=== PATIENT | female | born 1980 | race Caucasian/White ===

== ENCOUNTER 2017-02-01 22:45 | Emergency (ER) | payer OTHER ==
--- NOTE | 2017-02-01 22:49 | PDOC ---
History of Present Illness - General Chief Complaint: Cold Symptoms Stated Complaint: COLD LIKE SYMPTOMS Time Seen by Provider: 02/01/17 22:49 History Source: Patient Exam Limitations: No Limitations - History of Present Illness Initial Comments: 02/01/17 23:00 This is a 36-year-old female comes in complaining of upper respiratory tract symptoms. Patient is complaining of some shortness breath secondary to persistent coughing. Patient said coughing is nonproductive. There is no fever. There is some nasal congestion otherwise patient denies any other complaints. Patient denies any chest pain or shortness of breath. Patient said she had similar symptoms at a point in the past that she let the get to that and ended up having to come to the emergency room and get some nebulizer treatments. Patient does deny history of asthma. But said her seasonal ALLERGIES sometimes require a nebulizer treatment PAST MEDICAL HISTORY: no significant history PAST SURGICAL HISTORY: no significant history FAMILY HISTORY: no pertinant history SOCIAL HISTORY: Pt lives with family and is employed. MEDICATIONS: reviewed ALLERGIES: As per nursing notes Review of Systems General: No fevers or chills, no weakness, no weight loss HEENT: No change in vision. No sore throat,. No ear pain CardioVascular: No chest pain or shortness of breath Respiratory:No cough, or wheezing. Gastrointestinal: no nausea, vomitting, diarrhea or constipation, No rectal bleeding Genitourinary: No dysuria, hematuria, or frequency Musculoskeletal: No joint or muscle pain or swelling Neurologic: No headache, vertigo, dizziness or loss of consciousness Psychiatric: nor depression Skin: No rashes or easy bruising Endocrine: no increased thirst or abnormal weight change Allergic: no skin or latex allergy All other systems reviewed and normal Exam: General: Well-nourished well-developed individual, no acute distress HEENT: Throat: Normal, tonsils normal, there is some erythema of the posterior oropharynx otherwise is normal Neck: Supple, no meningeal signs, no lymphadenopathy Eyes::Pupils equal reactive and round, extraocular motion intact Chest: Nontender to palpation Cardiac: S1-S2 normal, regular rate and rhythm, no murmurs rubs or gallops Respiratory: Very mild x-ray wheeze bilateral Abdomen: Soft, nondistended, normal bowel sounds, nontender to palpation diffusely Extremities: Warm, dry, no cyanosis, clubbing, or edema Skin: No rashes Neuro: Alert and oriented x3, nonfocal exam, grossly intact, normal gait Psych: Normal mood and affect 02/01/17 23:26 Assessment and plan: This is a 36 her old female with upper respiratory tract symptoms and comes in complaining of coughing with difficulty breathing. Patient was given a DuoNeb when necessary the emergency room with improvement of her symptoms in addition to some by mouth prednisone. Patient discharged home with prescription for Ventolin and will follow-up with her primary care doctor as needed 02/01/17 23:27 Past History - Past Medical History Allergies/Adverse Reactions: Allergies Allergy/AdvReac Type Severity Reaction Status Date / Time epinephrine Allergy Verified 10/09/15 22:52 ERYHTROMYCIN Allergy Vomiting Uncoded 10/09/15 22:52 Home Medications: Ambulatory Orders Levothyroxine [Synthroid -] 50 mcg PO DAILY 03/30/15 Liothyronine Sodium [Cytomel -] 5 mcg PO DAILY 03/30/15 Meclizine HCl 25 mg PO TID #30 tab.chew 08/26/15 Metformin HCl 500 mg PO DAILY 08/26/15 Amoxicillin - [Amoxicillin 500mg Capsule -] 500 mg PO TID #9 capsule 10/10/15 Naproxen [EC-Naprosyn] 500 mg PO BID #14 tablet.ec 10/10/15 Albuterol Sulfate Inhaler - [Ventolin Hfa Inhaler -] 1 - 2 inh PO QID #1 inhaler 02/01/17 Benzonatate [Tessalon Pearls -] 100 mg PO TID #21 capsule 02/01/17 Cardiac Disorders: Yes (MVP, patent foramen ovale) Thyroid Disease: Yes (Fatemeh's thyroiditis) - Surgical History Abdominal Surgery: No Appendectomy: No Cardiac Surgery: No - Immunization History Immunization Up to Date: Yes - Psycho/Social/Smoking Cessation Hx Anxiety: No Suicidal Ideation: No Smoking Status: No Smoking History: Never smoked Have you smoked in the past 12 months: No Number of Cigarettes Smoked Daily: 0 Hx Alcohol Use: No Drug/Substance Use Hx: No Substance Use Type: None *DC/Admit/Observation/Transfer Diagnosis at time of Disposition: Upper respiratory tract infection, Cough - Discharge Dispostion Disposition: HOME Condition at time of disposition: Good - Patient Instructions Printed Discharge Instructions: DI for Viral Upper Respiratory Infection -- Adult Additional Instructions: You can do take Tessalon Perles 13 times a day for the cough. It swallow the Perle do not chew it as it will numb your mouth. In addition to that you can use the Ventolin inhaler 2 puffs as often as every 4 -6 hours if needed for coughing and shortness of breath. Return to the emergency department immediately with ANY new, persistent or worsening symptoms. Continue any medications as previously prescribed by your physician. You should follow up with your primary doctor as soon as possible regarding today's emergency department visit. . Please make sure your doctor reviews the results of your emergency evaluation. Thank you for coming to the Emergency Department today for your care. It was a pleasure to see you today. Please note that your evaluation is INCOMPLETE until you follow-up with your doctor.
[2017-02-01] MEDS ORDERED: ALBUTEROL SO4 2.5/IPRATROPIUM 0.5 INH SOL 3 ML VIAL.NEB. NEB ONE ×2 (22:59→23:07)
[2017-02-01] MEDS ORDERED: predniSONE 20 MG TABLET (UD) PO ONE (22:59)
[2017-02-01 23:01] VITALS: BP 117/69; PULSE 111; TEMP 98.3; BMI 41.5
[2017-02-01] MEDS ORDERED: predniSONE 20 MG TABLET (UD) ONE (23:07)
== END 2017-02-01 23:32 | disposition home or self-care (01) ==
LOC: FER 22:45
PROC: 3E0F7GC Introduction of Other Therapeutic Substance into Respiratory Tract, Via Natural or Artificial Opening (ICD-10-PCS; principal; 2017-02-01)
DX: J06.9 Acute upper respiratory infection, unspecified (principal); B97.89 Other viral agents as the cause of diseases classified elsewhere
CPT/HCPCS: 99282-25

== ENCOUNTER 2017-02-06 11:03 | Emergency (ER) | payer OTHER ==
[2017-02-06 11:10] VITALS: BP 108/60; PULSE 84; TEMP 98; BMI 35.4
--- NOTE | 2017-02-06 11:22 | PDOC ---
History of Present Illness - General Chief Complaint: Cold Symptoms Stated Complaint: SOB Time Seen by Provider: 02/06/17 11:14 - History of Present Illness Initial Comments: 02/06/17 11:45 Pt. is a 36 y/o female who presents to [facility] c/o of shortness of breath and cough. Pt. states that she was seen in the ED a few days ago and is now feeling worse. Pt. states she has been using the inhaler as prescribed to her last visit. Admits to subjective fevers, chills, productive cough with yellow sputum, reproducible chest pain (present with coughing) SOB, dyspnea, ear fullness, sore throat, and dizziness. Pt. states that she feels dizzy during her coughing spells. Pt. states that her cough was not productive a few days ago , but is now. Admits to a hx of seasonal allergies. No hx of asthma. Denies, visual changes, hearing changes, palpitations, n/v/d. Past History - Past Medical History Allergies/Adverse Reactions: Allergies Allergy/AdvReac Type Severity Reaction Status Date / Time epinephrine Allergy Verified 02/06/17 11:10 ERYHTROMYCIN Allergy Vomiting Uncoded 02/06/17 11:10 Home Medications: Ambulatory Orders Levothyroxine [Synthroid -] 50 mcg PO DAILY 03/30/15 Liothyronine Sodium [Cytomel -] 5 mcg PO DAILY 03/30/15 Meclizine HCl 25 mg PO TID #30 tab.chew 08/26/15 Metformin HCl 500 mg PO DAILY 08/26/15 Amoxicillin - [Amoxicillin 500mg Capsule -] 500 mg PO TID #9 capsule 10/10/15 Naproxen [EC-Naprosyn] 500 mg PO BID #14 tablet.ec 10/10/15 Albuterol Sulfate Inhaler - [Ventolin Hfa Inhaler -] 1 - 2 inh PO QID #1 inhaler 02/01/17 Benzonatate [Tessalon Pearls -] 100 mg PO TID #21 capsule 02/01/17 Acetaminophen with Codeine [Tylenol with Codeine #3 Tablet] 1 each PO HS #5 tablet MDD 1 02/06/17 Fluticasone Prop 0.05% Nasal [Flonase -] 1 spray NS BID #1 spray 02/06/17 Prednisone 20 mg PO BID #20 tablet 02/06/17 Cardiac Disorders: Yes (MVP, patent foramen ovale) Thyroid Disease: Yes (Fatemeh's thyroiditis) - Surgical History Abdominal Surgery: No Appendectomy: No Cardiac Surgery: No - Immunization History Immunization Up to Date: Yes - Psycho/Social/Smoking Cessation Hx Anxiety: No Suicidal Ideation: No Smoking Status: No Smoking History: Never smoked Have you smoked in the past 12 months: No Number of Cigarettes Smoked Daily: 0 Information on smoking cessation initiated: No Hx Alcohol Use: No Drug/Substance Use Hx: No Substance Use Type: None *Physical Exam - Vital Signs Last Vital Signs Temp Pulse Resp BP Pulse Ox 98 F 84 18 108/60 100 02/06/17 11:08 02/06/17 11:08 02/06/17 11:08 02/06/17 11:08 02/06/17 11:08 - Physical Exam General Appearance: Yes: Nourished, Appropriately Dressed. No: Apparent Distress HEENT: positive: EOMI, ISABELLA, Normal Voice, Pharyngeal Erythema, Nasal Congestion , TM Dull (With effusions b/l), TM Erythema. negative: Tonsillar Exudate, Tonsillar Erythema, Rhinorrhea, Excessive drooling Neck: positive: Trachea midline, Supple. negative: Rigid, Lymphadenopathy (R), Lymphadenopathy (L) Respiratory/Chest: positive: Chest Tender, Lungs Clear, Normal Breath Sounds ( poor aeration to the bases), Respiratory Distress. 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 is a 36 y/o female who presents to [facility] with complaints of shortness of breath for 5 days. VVS stable. Duoneb treatment given on 02/01/17 helped per pt. Will give another duoneb treatment now as well as ibuprofen and dexamethasone. Will re-evaluate. 02/06/17 12:06 ISTOP queried, no documented narcotic use. 02/06/17 12:26 One duoneb treatment given, lungs with fair aeration to bases. Pt, states she is feeling better. Will discharge home at this time with prednisone tylenol with codeine and flonase. Pt. instructed to use her inhaler as prescribed for the next five days or until symptoms resolve. Pt. verbalizes understanding of discharge instructions and all questions were answered. *DC/Admit/Observation/Transfer Diagnosis at time of Disposition: Upper respiratory tract infection Qualifiers: URI type: unspecified viral URI Qualified Code(s): J06.9 - Acute upper respiratory infection, unspecified - Discharge Dispostion Disposition: HOME Condition at time of disposition: Stable Admit: No - Prescriptions Prescriptions: Fluticasone Prop 0.05% Nasal [Flonase -] 1 spray NS BID #1 spray Prednisone 20 mg PO BID #20 tablet Acetaminophen with Codeine [Tylenol with Codeine #3 Tablet] 1 each PO HS #5 tablet MDD 1 - Referrals Referrals: Teddy Campos MD [Primary Care Provider] - - Patient Instructions Printed Discharge Instructions: DI for Viral Upper Respiratory Infection -- Adult Additional Instructions: You have an upper respiratory infection. Use your inhaler every 4 hours for the next 5 days or until your symptoms resolve. You were prescribed prednisone to help with your shortness of breath. Take your prednisone as prescribed. Use flonase twice a day (one spray in each nostril) to help with your ear fullness. You were also prescribed Tylenol with codeine. Take this at night before you go to sleep. Do not drive after taking this medication. You may also take hot showers to help with your congestion. Follow up with your primary care provider within the week. If you experience any changes in your symptoms, or if you have increasing shortness of breath, return to the ED.
[2017-02-06] MEDS ORDERED: ALBUTEROL SO4 2.5/IPRATROPIUM 0.5 INH SOL 3 ML VIAL.NEB. NEB ONE ×2 (11:36→11:40)
[2017-02-06] MEDS ORDERED: IBUPROFEN 600 MG TABLET (FP) PO ONE ×2 (11:37→11:40)
[2017-02-06] MEDS ORDERED: DEXAMETHASONE 4 MG TABLET (FP) PO ONE (12:08)
[2017-02-06] MEDS ORDERED: DEXAMETHASONE 4 MG TABLET (FP) ONE (12:19)
--- NOTE | 2017-02-07 17:14 | EKG ---
Test Reason : Blood Pressure : / mmHG Vent. Rate : 082 BPM Atrial Rate : 082 BPM P-R Int : 152 ms QRS Dur : 068 ms QT Int : 388 ms P-R-T Axes : 032 059 025 degrees QTc Int : 453 ms NORMAL SINUS RHYTHM NORMAL ECG WHEN COMPARED WITH ECG OF 04-NOV-2013 22:55, NO SIGNIFICANT CHANGE WAS FOUND Confirmed by PURNIMA KIM MD ([id number]) on 02/07/2017 5:13:48 PM Referred By: Confirmed By:PURNIMA KIM MD
== END 2017-02-06 12:51 | disposition home or self-care (01) ==
LOC: JERFT 11:03
DX: J06.9 Acute upper respiratory infection, unspecified (principal); B97.89 Other viral agents as the cause of diseases classified elsewhere
CPT/HCPCS: 93005; 93010; 99281-25

== ENCOUNTER 2017-06-01 16:35 | Emergency (ER) | payer OTHER ==
[2017-06-01 16:43] VITALS: BP 124/75; PULSE 83; TEMP 98.1; BMI 35.4
--- NOTE | 2017-06-01 17:02 | PDOC ---
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 Patient now with complaints of right ankle pain, right knee pain, some low mid and upper back pain with neck pain, and left hand pain. Denies head injury. States was able to bear weight after the incident but pain is progressively worsening and knee and ankle. Occurred: reports: just prior to arrival Severity: reports: mild, moderate Pain Location: reports: lower extremity (right ankle ) Modifying Factors: improves with: None, cold therapy Loss of Consciousness: no loss of consciousness Associated Symptoms (Fall): muscle spasms, neck pain, trouble walking Past History - Travel Traveled outside of the country in the last 30 days: No Close contact w/someone who was outside of country & ill: No - Past Medical History Allergies/Adverse Reactions: Allergies Allergy/AdvReac Type Severity Reaction Status Date / Time epinephrine Allergy Verified 06/01/17 16:42 Tetracyclines AdvReac Nausea Verified 06/01/17 16:42 ERYHTROMYCIN Allergy Vomiting Uncoded 06/01/17 16:42 Home Medications: Ambulatory Orders Levothyroxine [Synthroid -] 50 mcg PO DAILY 03/30/15 Liothyronine Sodium [Cytomel -] 5 mcg PO DAILY 03/30/15 Metformin HCl 500 mg PO DAILY 08/26/15 Cardiac Disorders: Yes (MVP, patent foramen ovale) Thyroid Disease: Yes (Fatemeh's thyroiditis) - Surgical History Abdominal Surgery: No Appendectomy: No Cardiac Surgery: No - Immunization History Immunization Up to Date: Yes - Psycho/Social/Smoking Cessation Hx Anxiety: No Suicidal Ideation: No Smoking Status: No Smoking History: Never smoked Have you smoked in the past 12 months: No Number of Cigarettes Smoked Daily: 0 Hx Alcohol Use: No Drug/Substance Use Hx: No Substance Use Type: None Review of Systems - Review of Systems Able to Perform ROS?: Yes Is the patient limited Yemeni proficient: Yes Constitutional: Yes: Symptoms Reported, See HPI, Malaise HEENTM: Yes: See HPI. No: Symptoms Reported Respiratory: No: Symptoms reported Cardiac (ROS): No: Symptoms Reported : No: Symptoms Reported Musculoskeletal: Yes: Symptoms Reported, See HPI, Back Pain, Joint Pain (right knee, right ankle, left wrist. ), Joint Swelling, Muscle Pain, Neck Pain, Joint Stiffness (right ankle and knee ) Neurological: Yes: Symptoms reported, See HPI All Other Systems: Reviewed and Negative *Physical Exam - Vital Signs Last Vital Signs Temp Pulse Resp BP Pulse Ox 98.1 F 83 19 124/75 97 06/01/17 16:38 06/01/17 16:38 06/01/17 16:38 06/01/17 16:38 06/01/17 16:38 - Physical Exam General Appearance: Yes: Nourished, Appropriately Dressed, Apparent Distress, Mild Distress, Moderate Distress HEENT: positive: ISABELLA, Normal ENT Inspection, TMs Normal, Pharynx Normal Neck: positive: Supple (has mild tenderness along the paravertebral spinous muscles of neck, no C-spine tenderness crepitus or step-offs. Range of motion is intact.). negative: Tender Respiratory/Chest: positive: Lungs Clear, Normal Breath Sounds Gastrointestinal/Abdominal: positive: Soft Musculoskeletal: positive: Normal Inspection, Other. negative: Vertebral Tenderness Extremity: positive: Normal Capillary Refill, Swelling, Other (left wrist with tenderness at the wrist joint, no distal radius, or navicular pain although patient is sensitive to any movement, is able to flex and extend fingers, neurovascular intact to fingertips. There is no obvious bruising or skin impairment on palm. Range of motion is limited secondary to the pain reproduced with flexion and extension at wrist joint which extends up arm indicating probable tendinous injury. Right ankle has swelling and tenderness to the lateral aspect of midfoot without pain to medial or lateral malleolus, no fifth metatarsal or navicular pain, Achilles is intact and negative squeeze test. Neurovascular intact to foot. Has tenderness along the midfoot in the ligamentous areas). negative: Normal Inspection, Normal Range of Motion (age motion limited to right knee secondary to pain primarily in the supra-tibial area and knee joint. Patella is intact without crepitus or step-offs, has some mild tenderness reproduced along the medial and lateral aspect of the knee joint. No ballottement but difficult to examine as patient is guarding. Unable to check anterior drawer test. Has no tibial or fibular tenderness and negative squeeze test however has tenderness reproduced along the medial aspect of right ankle), Calf Tenderness Integumentary: positive: Normal Color, Swelling. 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 X-rays negative for any fractures or dislocations. We'll treat with NSAIDs, immobilizers to ankle and wrist and Rudy wrap for knee. Encourage ice elevate and rest over the weekend and follow-up with orthopedist if not significantly resolved on Monday. Patient does not wish for stronger pain medication including Percocet *DC/Admit/Observation/Transfer Diagnosis at time of Disposition: Multiple contusions Right knee sprain Qualifiers: Encounter type: initial encounter Involved ligament of knee: unspecified ligament Qualified Code(s): S83.91XA - Sprain of unspecified site of right knee , initial encounter Sprain of left wrist Qualifiers: Encounter type: initial encounter Qualified Code(s): S63.502A - Unspecified sprain of left wrist, initial encounter Sprain of right ankle Qualifiers: Encounter type: initial encounter Involved ligament of ankle: unspecified ligament Qualified Code(s): S93.401A - Sprain of unspecified ligament of right ankle, initial encounter - Discharge Dispostion Disposition: HOME Condition at time of disposition: Stable Admit: No - Referrals Referrals: Teddy Campos MD [Primary Care Provider] - - Patient Instructions Printed Discharge Instructions: Sprain, DI for Ankle Sprain Additional Instructions: Rest, ice to area on and off for 15 minutes 4-6 times a day Avoid heavy lifting or exercise until pain and swelling is resolved or until further directed Keep area highly elevated to reduce swelling Use splints/Rudy wrap as directed Followup with orthopedist in one to 2 days if not improving, if significantly improved may wait one week for followup with orthopedist May use ibuprofen 2-200 mg tablets every 6 hours as needed for pain - Post Discharge Activity Work/School Note: Back to Work
[2017-06-01] MEDS ORDERED: IBUPROFEN 600 MG TABLET (FP) PO ONE ×3 (17:26→17:48)
== END 2017-06-01 18:40 | disposition home or self-care (01) ==
LOC: JER 16:35 → JERFT 16:35
DX: S13.4XXA Sprain of ligaments of cervical spine, initial encounter (principal); S83.8X1A Sprain of other specified parts of right knee, initial encounter; S93.491A Sprain of other ligament of right ankle, initial encounter; S63.592A Other specified sprain of left wrist, initial encounter; V68.4XXA Person boarding or alighting a heavy transport vehicle injured in noncollision transport accident, initial encounter; Y92.480 Sidewalk as the place of occurrence of the external cause; Y93.89 Activity, other specified; Y99.0 Civilian activity done for income or pay
CPT/HCPCS: 73562-TC-RT; 73610-TC-RT; 99281-25

== ENCOUNTER 2018-12-19 23:06 | Emergency (ER) | payer OTHER ==
[2018-12-19 23:16] VITALS: BP 114/64; PULSE 77; TEMP 97.7; BMI 33.6
== END 2018-12-20 00:37 | disposition left against medical advice (07) ==
LOC: JER 23:06
DX: Z53.21 Procedure and treatment not carried out due to patient leaving prior to being seen by health care provider (principal)
CPT/HCPCS: 99281-25

== ENCOUNTER 2020-09-25 13:19 | Emergency (ER) | payer OTHER ==
[2020-09-25 13:49] VITALS: BMI 30.7
[2020-09-25 16:29] LABS: BASO % 0.2 % (0-2.0); EOS % 0.3 % (0-4.5); HEMATOCRIT 37.8 % (32.4-45.2); HEMOGLOBIN 12.7 GM/dL (10.7-15.3); MCH 32.3 pg (25.7-33.7); MCHC 33.6 g/dl (32.0-36.0); MEAN CELL VOLUME 96.3 fl (80-96); MEAN PLT VOLUME 7.9 fl (7.5-11.1); MONO % 8.8 % (3.8-10.2); NEUT % 75.7 % (42.8-82.8); PLATELET COUNT 285 K/MM3 (134-434); RBC 3.92 M/mm3 (3.60-5.2); RDW 14.1 % (11.6-15.6); WHITE BLOOD COUNT 6.3 K/mm3 (4.0-10.0)
[2020-09-25 16:32] VITALS: BP 135/81; PULSE 86; TEMP 98.8
[2020-09-25 16:36] LABS: INR 1.29 (0.83-1.09); PROTHROMBIN TIME (PATIENT) 15.5 SEC (9.7-13.0)
[2020-09-25 16:48] LABS: CHLORIDE 106 mmol/L (98-107); SODIUM 138 mmol/L (136-145)
[2020-09-25 16:50] LABS: CALCIUM 8.6 mg/dL (8.5-10.1)
[2020-09-25 16:51] LABS: ALBUMIN 3.8 g/dl (3.4-5.0); ANION GAP 4 MMOL/L (8-16); BLOOD UREA NITROGEN 12.8 mg/dL (7-18); CO2 29 mmol/L (21-32); GLUCOSE,RANDOM 107 mg/dL (74-106); MAGNESIUM 2.1 mg/dL (1.8-2.4)
[2020-09-25 16:54] LABS: CREATININE 0.8 mg/dL (0.55-1.3); SGOT/AST 11 U/L (15-37); SGPT/ALT 17 U/L (13-61)
[2020-09-25 16:56] LABS: BILIRUBIN,TOTAL 0.2 mg/dL (0.2-1); TOT PROT 7.5 g/dl (6.4-8.2)
[2020-09-25 16:57] LABS: ALK PHOS 65 U/L (45-117); LDH 179 U/L (84-246)
== END 2020-09-25 17:25 | disposition home or self-care (01) ==
LOC: JERFT 13:19
DX: R07.1 Chest pain on breathing (principal)
CPT/HCPCS: 36415; 71046-TC-FY; 80053; 82308; 82550; 82728; 83605; 83615; 83735; 84484; 84702; 85025; 85379; 85610; 86900; 93005; 93010; 99285-25

== ENCOUNTER 2020-09-25 23:43 | Observation (INO) | payer OTHER ==
[2020-09-26 00:46] VITALS: BMI 30.5
[2020-09-26 04:31] LABS: BASO % 0.5 % (0-2.0); EOS % 1.4 % (0-4.5); HEMATOCRIT 36.8 % (32.4-45.2); HEMOGLOBIN 12.3 GM/dL (10.7-15.3); LYMPH % 30.3 % (8-40); MCHC 33.4 g/dl (32.0-36.0); MEAN CELL VOLUME 95.7 fl (80-96); MEAN PLT VOLUME 8.4 fl (7.5-11.1); MONO % 12.3 % (3.8-10.2); NEUT % 55.5 % (42.8-82.8); PLATELET COUNT 276 K/MM3 (134-434); RBC 3.84 M/mm3 (3.60-5.2); RDW 13.9 % (11.6-15.6); WHITE BLOOD COUNT 5.4 K/mm3 (4.0-10.0)
[2020-09-26 05:52] LABS: ALBUMIN 3.8 g/dl (3.4-5.0); BLOOD UREA NITROGEN 15.2 mg/dL (7-18); CALCIUM 8.9 mg/dL (8.5-10.1)
[2020-09-26 05:55] LABS: CREATININE 0.7 mg/dL (0.55-1.3)
[2020-09-26 05:57] LABS: BILIRUBIN,TOTAL 0.4 mg/dL (0.2-1); TOT PROT 7.3 g/dl (6.4-8.2)
[2020-09-26] MEDS ORDERED: APIXABAN 5 MG TABLET ONE (08:57)
[2020-09-26] MEDS ORDERED: APIXABAN 5 MG TABLET PO SCH (10:00)
[2020-09-26 15:36] VITALS: BP 118/68; PULSE 94; TEMP 98
== END 2020-09-26 17:25 | disposition home or self-care (01) ==
LOC: JER 23:43 → INTOOBSV 09-26 01:37 → JERBED 09-26 01:37
PROVIDERS: ADMIT Internal Medicine; ATTEND Internal Medicine
DX: I49.8 Other specified cardiac arrhythmias (principal); R00.0 Tachycardia, unspecified; U07.1 COVID-19; E66.8 Other obesity; E06.3 Autoimmune thyroiditis; I26.99 Other pulmonary embolism without acute cor pulmonale; Z68.30 Body mass index [BMI] 30.0-30.9, adult; Z79.01 Long term (current) use of anticoagulants; A69.20 Lyme disease, unspecified; Q21.1 Atrial septal defect; G47.33 Obstructive sleep apnea (adult) (pediatric); Z29.9 Encounter for prophylactic measures, unspecified
CPT/HCPCS: 36415; 80053; 83735; 84484; 85025; 93005; 93010; 99285-25; C9803; G0378; U0003

== ENCOUNTER 2020-09-29 01:31 | Observation (INO) | payer OTHER ==
[2020-09-29 02:27] VITALS: BMI 25.4
[2020-09-29 03:28] LABS: BASO % 0.5 % (0-2.0); HEMATOCRIT 38.7 % (32.4-45.2); HEMOGLOBIN 12.9 GM/dL (10.7-15.3); LYMPH % 7.4 % (8-40); MCH 31.6 pg (25.7-33.7); MCHC 33.3 g/dl (32.0-36.0); MEAN CELL VOLUME 94.7 fl (80-96); MEAN PLT VOLUME 7.8 fl (7.5-11.1); NEUT % 91.1 % (42.8-82.8); PLATELET COUNT 334 K/MM3 (134-434); RBC 4.08 M/mm3 (3.60-5.2); RDW 13.8 % (11.6-15.6); WHITE BLOOD COUNT 10.7 K/mm3 (4.0-10.0)
[2020-09-29 03:54] LABS: CALCIUM 8.8 mg/dL (8.5-10.1)
[2020-09-29 03:55] LABS: BLOOD UREA NITROGEN 11.8 mg/dL (7-18); MAGNESIUM 2.1 mg/dL (1.8-2.4)
[2020-09-29 03:58] LABS: CREATININE 0.8 mg/dL (0.55-1.3)
[2020-09-29 04:00] LABS: BILIRUBIN,TOTAL 0.3 mg/dL (0.2-1); TOT PROT 7.9 g/dl (6.4-8.2)
[2020-09-29 06:02] LABS: PLATELET ESTIMATE ADEQUATE
[2020-09-29] MEDS ORDERED: ENOXAPARIN NA (PORCINE) 40 MG/0.4 ML DISP.SYRIN SQ SCH (10:00)
[2020-09-29] MEDS ORDERED: APIXABAN 5 MG TABLET PO SCH (10:00)
[2020-09-29 11:06] VITALS: TEMP 98.4
[2020-09-29] MEDS ORDERED: FLUTICASONE PROP 0.05% 16 GM NASAL SPRAY NS SCH (11:45)
[2020-09-29] MEDS ORDERED: ALBUTEROL SO4 HFA INHALER IH PRN (11:56)
[2020-09-29] MEDS ORDERED: FAMOTIDINE 10 MG TABLET PO SCH (12:00)
[2020-09-29] MEDS ORDERED: FAMOTIDINE 10 MG TABLET ONE (12:51)
[2020-09-29] MEDS ORDERED: metoPROLOL SUCCINATE 25 MG TAB.SR.24H (FP) PO ONE (14:22)
[2020-09-29] MEDS ORDERED: metoPROLOL SUCCINATE 25 MG TAB.SR.24H (FP) ONE (14:31)
[2020-09-29 14:42] VITALS: BP 110/75; PULSE 78
== END 2020-09-29 15:50 | disposition home or self-care (01) ==
LOC: JER 01:31 → JERBED 05:06
PROVIDERS: ADMIT Internal Medicine
DX: R00.2 Palpitations (principal); R00.0 Tachycardia, unspecified; R07.9 Chest pain, unspecified; U07.1 COVID-19; Q21.1 Atrial septal defect; E06.3 Autoimmune thyroiditis; I26.99 Other pulmonary embolism without acute cor pulmonale; G47.33 Obstructive sleep apnea (adult) (pediatric); I27.20 Pulmonary hypertension, unspecified
CPT/HCPCS: 36415; 71275-TC; 80053; 83735; 84443; 84484; 84703; 85025; 85379; 93005; 93010; 93306-TC; 99285-25; C9803; G0378; Q9967; U0003

== ENCOUNTER 2020-10-02 22:23 | Emergency (ER) | payer OTHER | END 2020-10-03 00:14 | disposition home or self-care (01) | LOC: FER 22:23 | DX: R07.89 Other chest pain (principal) | CPT/HCPCS: 99282-25 ==

== ENCOUNTER 2021-03-11 14:51 | Observation (INO) | payer OTHER ==
[2021-03-11 15:04] VITALS: BMI 28.3
[2021-03-11] MEDS ORDERED: SODIUM CHLORIDE 1,000 ML IV STA (15:49)
[2021-03-11 17:26] LABS: INR 0.97 (0.83-1.09)
[2021-03-11 17:29] LABS: CHLORIDE 105 mmol/L (98-107); SODIUM 141 mmol/L (136-145)
[2021-03-11 17:31] LABS: BLOOD UREA NITROGEN 13.9 mg/dL (7-18); CALCIUM 8.8 mg/dL (8.5-10.1)
[2021-03-11 17:32] LABS: ALBUMIN 3.8 g/dl (3.4-5.0); ANION GAP 6 MMOL/L (8-16); CO2 30 mmol/L (21-32); GLUCOSE,RANDOM 70 mg/dL (74-106); MAGNESIUM 2.2 mg/dL (1.8-2.4)
[2021-03-11 17:34] LABS: SGPT/ALT 17 U/L (13-61)
[2021-03-11 17:35] LABS: CREATININE 0.8 mg/dL (0.55-1.3); SGOT/AST 11 U/L (15-37)
[2021-03-11 17:36] LABS: BILIRUBIN,TOTAL 0.4 mg/dL (0.2-1); TOT PROT 6.9 g/dl (6.4-8.2)
[2021-03-11 17:37] LABS: ALK PHOS 53 U/L (45-117)
[2021-03-11 21:33] LABS: BASO % 0.6 % (0-2.0); EOS % 1.5 % (0-4.5); HEMOGLOBIN 11.4 GM/dL (10.7-15.3); LYMPH % 26.7 % (8-40); MCH 31.3 pg (25.7-33.7); MCHC 33.5 g/dl (32.0-36.0); MEAN CELL VOLUME 93.2 fl (80-96); MEAN PLT VOLUME 7.4 fl (7.5-11.1); MONO % 9.1 % (3.8-10.2); NEUT % 62.1 % (42.8-82.8); PLATELET COUNT 251 10^3/uL (134-434); RBC 3.65 M/mm3 (3.60-5.2); RDW 14.3 % (11.6-15.6)
[2021-03-12 05:27] VITALS: TEMP 97.6
[2021-03-12 06:52] LABS: HEMATOCRIT 32.9 % (32.4-45.2); HEMOGLOBIN 11.1 GM/dL (10.7-15.3); MCH 31.5 pg (25.7-33.7); MCHC 33.8 g/dl (32.0-36.0); MEAN CELL VOLUME 93.1 fl (80-96); MEAN PLT VOLUME 7.8 fl (7.5-11.1); PLATELET COUNT 206 10^3/uL (134-434); RBC 3.53 M/mm3 (3.60-5.2); WHITE BLOOD COUNT 5.6 K/mm3 (4.0-10.0)
[2021-03-12] MEDS ORDERED: LEVOTHYROXINE NA 75 MCG TABLET (FP) PO SCH (07:00)
[2021-03-12 07:21] LABS: ALBUMIN 3.2 g/dl (3.4-5.0); BLOOD UREA NITROGEN 8.8 mg/dL (7-18); CALCIUM 8.5 mg/dL (8.5-10.1); MAGNESIUM 2.1 mg/dL (1.8-2.4)
[2021-03-12 07:24] LABS: CREATININE 0.6 mg/dL (0.55-1.3); PHOSPHOROUS 3.3 mg/dL (2.5-4.9)
[2021-03-12 07:26] LABS: BILIRUBIN,TOTAL 0.8 mg/dL (0.2-1); TOT PROT 6.1 g/dl (6.4-8.2)
[2021-03-12] MEDS ORDERED: LEVOTHYROXINE NA 25 MCG TABLET (FP) ONE (09:11)
[2021-03-12] MEDS ORDERED: ASPIRIN 81 MG CHEWABLE TABLETS ONE (09:44)
[2021-03-12] MEDS ORDERED: LIOTHYRONINE SODIUM 5 MCG TABLET PO SCH (10:00)
[2021-03-12] MEDS ORDERED: ENOXAPARIN NA (PORCINE) 40 MG/0.4 ML DISP.SYRIN SQ SCH (10:00)
[2021-03-12] MEDS ORDERED: ASPIRIN 81 MG CHEWABLE TABLETS PO SCH (10:00)
[2021-03-12 13:23] VITALS: BP 135/56; PULSE 75
== END 2021-03-12 13:14 | disposition home or self-care (01) ==
LOC: JER 14:51 → JERBED 03-12 04:48
PROVIDERS: ADMIT Internal Medicine; ATTEND Internal Medicine
PROC: 3E0 Administration, Physiological Systems and Anatomical Regions, Introduction (ICD-10-PCS; principal; 2021-03-12)
DX: R00.2 Palpitations (principal); E06.3 Autoimmune thyroiditis; I49.8 Other specified cardiac arrhythmias; M79.7 Fibromyalgia; Z86.19 Personal history of other infectious and parasitic diseases; Z86.711 Personal history of pulmonary embolism; Z88.1 Allergy status to other antibiotic agents; Z88.8 Allergy status to other drugs, medicaments and biological substances
CPT/HCPCS: 36415; 71046-TC-FY; 71275-TC; 80053; 82550; 83735; 84100; 84443; 84484; 84703; 85025; 85027; 85379; 85610; 86769; 93005; 93010; 93970-TC; 96360; 99285-25; G0378

== ENCOUNTER 2022-02-06 02:16 | Emergency (ER) | payer OTHER ==
[2022-02-06 02:32] VITALS: BP 126/80; TEMP 98.7
[2022-02-06 02:40] VITALS: BMI 30.2
[2022-02-06 02:44] VITALS: PULSE 93
[2022-02-06 04:13] LABS: BASO % 0.8 % (0-2.0); EOS % 3.4 % (0-4.5); HEMATOCRIT 37.2 % (32.4-45.2); HEMOGLOBIN 12.5 GM/dL (10.7-15.3); LYMPH % 28.3 % (8-40); MCH 31.8 pg (25.7-33.7); MCHC 33.6 g/dl (32.0-36.0); MEAN CELL VOLUME 94.5 fl (80-96); MEAN PLT VOLUME 7.3 fl (7.5-11.1); MONO % 10.7 % (3.8-10.2); NEUT % 56.8 % (42.8-82.8); PLATELET COUNT 255 10^3/uL (134-434); RBC 3.93 M/mm3 (3.60-5.2); RDW 13.7 % (11.6-15.6); WHITE BLOOD COUNT 5.3 K/mm3 (4.0-10.0)
[2022-02-06 04:14] LABS: EPI CELLS 1 /uL (0-25.1); HYALINE CASTS 1 /uL (0-3.1); URINE APPEARANCE CLEAR; URINE BACTERIA 2832 /uL (0-1359); URINE BILIRUBIN NEGATIVE (NEGATIVE); URINE COLOR YELLOW; URINE GLUCOSE (UA) NEGATIVE (NEGATIVE); URINE KETONE NEGATIVE (NEGATIVE); URINE LEUK ESTERASE 3+ (NEGATIVE); URINE NITRITE NEGATIVE (NEGATIVE); URINE PROTEIN NEGATIVE (NEGATIVE); URINE RBC 179 /uL (0-23.9); URINE UROBILINOGEN 0.2 mg/dL (0.2-1.0); URINE WBC 786 /uL (0-25.8)
[2022-02-06 04:30] LABS: CALCIUM 8.5 mg/dL (8.5-10.1)
[2022-02-06 04:31] LABS: ALBUMIN 3.6 g/dl (3.4-5.0); BLOOD UREA NITROGEN 14.5 mg/dL (7-18)
[2022-02-06 04:34] LABS: CREATININE 0.8 mg/dL (0.55-1.3)
[2022-02-06 04:35] LABS: TOT PROT 6.6 g/dl (6.4-8.2)
[2022-02-06 04:36] LABS: BILIRUBIN,TOTAL 0.2 mg/dL (0.2-1)
[2022-02-06] MEDS ORDERED: NITROFURANTOIN MACROCRYSTAL 50 MG CAPSULE (FP) ONE (06:13)
[2022-02-06] MEDS ORDERED: NITROFURANTOIN MACROCRYSTAL 50 MG CAPSULE (FP) PO SCH (06:15)
== END 2022-02-06 06:17 | disposition home or self-care (01) ==
LOC: FER 02:16
DX: N39.0 Urinary tract infection, site not specified (principal); R00.2 Palpitations
CPT/HCPCS: 36415; 80053; 81003; 84484; 85025; 85379; 93005; 99284-25

== ENCOUNTER 2022-04-29 18:33 | Emergency (ER) | payer OTHER ==
[2022-04-29 18:45] VITALS: BP 123/75; PULSE 79; RESP 18; TEMP 98; BMI 27.4
[2022-04-29] MEDS ORDERED: LORazepam 2 MG/ML SDV VIAL IVPUSH ONE (19:35)
[2022-04-29 20:00] LABS: BASO % 0.7 % (0-2.0); EOS % 3.2 % (0-4.5); HEMATOCRIT 38.5 % (32.4-45.2); HEMOGLOBIN 12.9 GM/dL (10.7-15.3); LYMPH % 29.9 % (8-40); MCH 31.5 pg (25.7-33.7); MCHC 33.5 g/dl (32.0-36.0); MEAN CELL VOLUME 93.9 fl (80-96); MEAN PLT VOLUME 6.8 fl (7.5-11.1); MONO % 12.4 % (3.8-10.2); NEUT % 53.8 % (42.8-82.8); PLATELET COUNT 280 10^3/uL (134-434); RDW 13.9 % (11.6-15.6); WHITE BLOOD COUNT 5.6 K/mm3 (4.0-10.0)
[2022-04-29 20:13] LABS: INR 0.97 (0.83-1.09); PROTHROMBIN TIME (PATIENT) 11.2 SEC (9.7-13.0)
[2022-04-29 20:30] LABS: BLOOD UREA NITROGEN 13.2 mg/dL (7-18); CALCIUM 8.9 mg/dL (8.5-10.1)
[2022-04-29 20:33] LABS: CREATININE 0.8 mg/dL (0.55-1.3)
[2022-04-29 20:35] LABS: BILIRUBIN,TOTAL 0.3 mg/dL (0.2-1); TOT PROT 7.5 g/dl (6.4-8.2)
== END 2022-04-29 20:58 | disposition home or self-care (01) ==
LOC: JER 18:33
PROC: 3E033NZ Introduction of Analgesics, Hypnotics, Sedatives into Peripheral Vein, Percutaneous Approach (ICD-10-PCS; principal; 2022-04-29)
DX: R00.2 Palpitations (principal)
CPT/HCPCS: 36415; 71046-TC-FY; 80053; 84439; 84443; 84484; 85025; 85610; 93005; 93010; 99284-25

== ENCOUNTER 2022-04-30 00:17 | Emergency (ER) | payer OTHER ==
[2022-04-30 00:35] VITALS: BP 118/72; PULSE 85; RESP 19; TEMP 98.2; BMI 27.4
== END 2022-04-30 02:16 | disposition home or self-care (01) ==
LOC: FER 00:17
DX: R00.2 Palpitations (principal)
CPT/HCPCS: 99283-25